=== PATIENT | male | born 1975 | race Caucasian/White ===

== ENCOUNTER 2019-05-02 06:45 | Emergency (ER) | payer OTHER ==
[~2019-05-02] VITALS: Ht 170.2 cm; Wt 82.0 kg
[2019-05-02 07:02] VITALS: BP 164/129
== END 2019-05-02 08:15 | disposition left against medical advice (07) ==
LOC: ER 06:45
DX: Z00.8 Encounter for other general examination (principal); Z88.3 Allergy status to other anti-infective agents; Z87.442 Personal history of urinary calculi
CPT/HCPCS: 99281